=== PATIENT | female | born 1945 | race Asian ===

== ENCOUNTER 2017-08-19 08:26 | Inpatient (IN) | payer MEDICARE, MEDICAID ==
[~2017-08-19] VITALS: Ht 154.9 cm; Wt 66.0 kg
[2017-08-19] VITALS (7 sets, daily range): BP systolic 115–167; BP diastolic 65–82
[2017-08-19] MEDS ORDERED: BACITRACIN ZINC OINT 500U/GM, 0.9 GM TP SCH (09:00)
[2017-08-19] MEDS ORDERED: AMLO10TA2 PO (09:01)
[2017-08-19] MEDS ORDERED: VALS40TA2 PO (09:01)
[2017-08-19] MEDS ORDERED: CHLO25TA PO (09:01)
[2017-08-19] MEDS ORDERED: BACITRACIN ZINC OINT 500U/GM, 0.9 GM ONE (09:04)
[2017-08-19 09:34] LABS: BASOPHILS # (AUTO) 0.08 x10^3/uL (0-0.1); BASOPHILS % (AUTO) 1 % (0-1); EOSINOPHILS # (AUTO) 0.32 x10^3/uL (0-0.4); EOSINOPHILS % (AUTO) 3 % (1-7); LYMPHOCYTES # (AUTO) 1.21 x10^3/uL (1-3.4); LYMPHOCYTES % (AUTO) 11 % (22-44); MD NO; MEAN CORPUSCULAR HEMOGLOBIN 31.4 pg (27.0-34.8); MEAN CORPUSCULAR HGB CONC 34.7 g/dL (32.4-35.8); MEAN CORPUSCULAR VOLUME 90.5 fL (80-100); MEAN PLATELET VOLUME 7.1 fL (7.4-10.4); MONOCYTES # (AUTO) 1.12 x10^3/uL (0.2-0.8); MONOCYTES % (AUTO) 11 % (2-9); NEUTROPHILS # (AUTO) 7.95 x10^3/uL (1.8-6.8); NEUTROPHILS % (AUTO) 74 % (42-75); PLATELET COUNT 331 x10^3/uL (130-400); RED CELL DISTRIBUTION WIDTH 12.9 % (9.6-15.2)
[2017-08-19 09:45] LABS: ALBUMIN 2.8 g/dL (3.4-5.0); ANION GAP 8 mmol/L (5-15); CALCIUM 9.3 mg/dL (8.5-10.1); CHLORIDE 85 mmol/L (98-107); CREATININE 0.67 mg/dL (0.55-1.02)
[2017-08-19 09:51] LABS: INTERNATIONAL NORMALIZED RATIO 0.97 (0.93-1.1)
[2017-08-19] MEDS ORDERED: SODIUM CHLORIDE 0.9% 1,000 ML IV ONE (10:00)
[2017-08-19] MEDS ORDERED: POTASSIUM CHLORIDE 10% 40 MEQ/30 ML UDC PO ONE (10:30)
[2017-08-19] MEDS ORDERED: OMNIPAQUE 350 MG/ML, 100ML BOTTLE ONE (10:46)
[2017-08-19] MEDS ORDERED: ONDANSETRON 2MG/ML, 2ML IVPush PRN (11:30)
[2017-08-19] MEDS ORDERED: DOCUSATE 100 MG CAPSULE PO PRN (11:30)
[2017-08-19] MEDS ORDERED: ACETAMINOPHEN 325 MG TABLET PO PRN (11:30)
[2017-08-19] MEDS ORDERED: SODIUM CHLORIDE NASAL SPRAY 45ML BOTTLE NAS PRN (11:30)
[2017-08-19] MEDS: AMLODIPINE 5 MG TABLET PO SCH (11:30)
[2017-08-19] MEDS ORDERED: hydrALAzine 20 MG/ML, 1ML IVPush PRN (11:30)
[2017-08-19] MEDS ORDERED: GUAIFENESIN/DM 200-20MG, 10ML UDC PO PRN (11:30)
[2017-08-19] MEDS ORDERED: ONDANSETRON ODT 4 MG PO PRN (12:30)
[2017-08-19] MEDS ORDERED: FAMOTIDINE 20 MG TABLET ONE (12:41)
[2017-08-19] MEDS: SODIUM CHLORIDE 1 GM TABLET PO SCH ×3 (12:45→21:25)
[2017-08-19] MEDS: BENZONATATE 100 MG CAPSULE PO SCH ×3 (12:45→21:25)
[2017-08-19] MEDS: POTASSIUM CHLORIDE 20 MEQ TAB.ER.PRT PO SCH ×2 (12:45→16:19)
[2017-08-19] MEDS: FAMOTIDINE 20 MG TABLET PO SCH (12:45)
[2017-08-19 16:18] LABS: ANION GAP 8 mmol/L (5-15); CALCIUM 8.8 mg/dL (8.5-10.1); CHLORIDE 87 mmol/L (98-107); CREATININE 0.67 mg/dL (0.55-1.02)
[2017-08-20 03:27] VITALS: BP 130/73
[2017-08-20 05:57] LABS: BASOPHILS # (AUTO) 0.02 x10^3/uL (0-0.1); BASOPHILS % (AUTO) 0 % (0-1); EOSINOPHILS % (AUTO) 5 % (1-7); LYMPHOCYTES # (AUTO) 1.36 x10^3/uL (1-3.4); LYMPHOCYTES % (AUTO) 18 % (22-44); MD NO; MEAN CORPUSCULAR HEMOGLOBIN 31.2 pg (27.0-34.8); MEAN CORPUSCULAR HGB CONC 33.7 g/dL (32.4-35.8); MEAN CORPUSCULAR VOLUME 92.7 fL (80-100); MEAN PLATELET VOLUME 6.9 fL (7.4-10.4); MONOCYTES # (AUTO) 0.68 x10^3/uL (0.2-0.8); MONOCYTES % (AUTO) 9 % (2-9); NEUTROPHILS # (AUTO) 5.09 x10^3/uL (1.8-6.8); NEUTROPHILS % (AUTO) 67 % (42-75); PLATELET COUNT 310 x10^3/uL (130-400)
[2017-08-20 06:09] LABS: ANION GAP 8 mmol/L (5-15); CALCIUM 8.7 mg/dL (8.5-10.1); CHLORIDE 94 mmol/L (98-107); CREATININE 0.66 mg/dL (0.55-1.02)
[2017-08-20] MEDS: FAMOTIDINE 20 MG TABLET PO SCH (08:11)
[2017-08-20] MEDS: AMLODIPINE 5 MG TABLET PO SCH (08:11)
[2017-08-20] MEDS: BENZONATATE 100 MG CAPSULE PO SCH (08:11)
[2017-08-20 09:00] VITALS: BP 127/73
[2017-08-20] MEDS ORDERED: POTASSIUM CHLORIDE 20 MEQ TAB.ER.PRT PO ONE (09:00)
[2017-08-20 09:02] VITALS: BP 109/68
[2017-08-20 09:04] VITALS: BP 114/68
[2017-08-20] MEDS ORDERED: BENZ-17 PO (10:08)
[2017-08-20] MEDS ORDERED: BACI1PAC2 TP (10:08)
[2017-08-20] MEDS ORDERED: SODIUM CHLORIDE 1 GM TABLET ONE (10:32)
[2017-08-20] MEDS ORDERED: SODIUM CHLORIDE 1 GM TABLET PO SCH (11:00)
== END 2017-08-20 12:01 | disposition home or self-care (01) | DRG 150 ==
LOC: ED 09:49 → EDIP 10:23 → 4EST 11:05 → DCLOUNGE 08-20 11:50
PROVIDERS: ADMIT Hospitalist; ATTEND Hospitalist
DX: R04.0 Epistaxis (principal); E43 Unspecified severe protein-calorie malnutrition; E87.1 Hypo-osmolality and hyponatremia; E87.6 Hypokalemia; D72.829 Elevated white blood cell count, unspecified; E78.5 Hyperlipidemia, unspecified; G47.33 Obstructive sleep apnea (adult) (pediatric); I10 Essential (primary) hypertension; R73.03 Prediabetes; R05 Cough; M19.90 Unspecified osteoarthritis, unspecified site; Z86.711 Personal history of pulmonary embolism; Z68.27 Body mass index [BMI] 27.0-27.9, adult; Z88.8 Allergy status to other drugs, medicaments and biological substances
CPT/HCPCS: 36415; 71045; 71275; 80048; 82040; 83735; 83880; 85025; 85379; 85610; 85730; 93005; 99285; Q9967; J7030